=== PATIENT | female | born 1985 | race Hispanic/Latino ===

== ENCOUNTER 2017-05-19 21:48 | Emergency (ER) | payer OTHER ==
[~2017-05-19 21:48] MED LIST: Sodium Chloride 0.9% 1,000 ML BAG ONE
--- NOTE | 2017-05-19 22:43 | RAD ---
CHEST TWO VIEWS 05/19/17 HISTORY: Dyspnea. COMPARISON: None. FINDINGS: Normal cardiac silhouette. Lungs and pleural bases are clear. No pneumothorax or osseous abnormality. IMPRESSION: No acute cardiopulmonary process. POS: [facility]
[2017-05-19] MEDS ORDERED: Ondansetron HCl/PF 4 MG/2 ML Vial ONE (22:51)
[2017-05-19] MEDS ORDERED: Ketorolac Tromethamine 30 MG/ML VIAL ONE (22:51)
[2017-05-19 23:02] LABS: #Basophils 0.1 thou/uL (0.0-0.2); #Eosinphils 0.1 thou/uL (0.0-0.7); #Lymphocytes 3.1 thou/uL (1.20-3.40); #Monocytes 0.9 thou/uL (0.11-0.59); #Neutrophils 6.1 thou/uL (1.40-6.50); %Basophils 0.6 % (0.0-1.0); %Eosinophils 0.8 % (0.0-10.0); %Lymphocytes 30.5 % (21.0-51.0); %Monocytes 8.9 % (0.0-10.0); %Neutrophils 59.3 % (42.0-75.0); Hemoglobin 11.6 g/dL (12.0-16.0); Mean Corpuscular HGB CONC 33.3 g/dL (32.0-36.0); Mean Corpuscular Hemoglobin 29.5 pg (27.0-31.0); Mean Corpuscular Volume 88.6 fl (81.0-99.0); Mean Platelet Volume 8.1 fL (7.4-10.4); Platelet Count 301 thou/uL (130-400); RBC Distribution Width 12.5 % (11.5-14.5); Red Blood Cell (RBC) Count 3.93 mill/uL (4.20-5.40); White Blood Cell (WBC) Count 10.2 thou/uL (4.8-10.8)
[2017-05-19 23:16] LABS: ALT (SGPT) 15 U/L (8-55); AST (SGOT) 19 U/L (5-34); Albumin 4.3 g/dL (3.5-5.0); Alkaline Phosphatase 66 U/L (40-150); Anion Gap 13 mmol/L (10-20); BUN (Urea Nitrogen) 12 mg/dL (7.0-18.7); Bilirubin, Total 0.3 mg/dL (0.2-1.2); Calc. Creatinine Clearance 0 mL/min (70-130); Calcium 9.3 mg/dL (7.8-10.44); Carbon Dioxide 23 mmol/L (22-29); Chloride 107 mmol/L (98-107); Estimated GFR-MDRD Greater than 90; Globulin 3.5 g/dL (2.4-3.5); Glucose 96 mg/dL (70-105); Potassium 3.4 mmol/L (3.5-5.1); Protein, Total 7.8 g/dL (6.0-8.3); Sodium 140 mmol/L (136-145)
[2017-05-19] MEDS ORDERED: AMOXicillin 250 MG CAP ONE (23:51)
[2017-05-19] MEDS ORDERED: Benzonatate 100 MG CAP ONE (23:51)
== END 2017-05-20 00:16 | disposition home or self-care (01) ==
LOC: MADERS 21:48
DX: J20.9 Acute bronchitis, unspecified (principal); F41.9 Anxiety disorder, unspecified
CPT/HCPCS: 36415; 71046; 80053; 83880; 85025; 96361; 96374; 96375; J1885; J2405; J7050

== ENCOUNTER 2018-06-12 08:11 | Outpatient (CLI) | payer OTHER ==
--- NOTE | 2018-06-12 10:29 | ULT ---
PELVIC ULTRASOUND: HISTORY: Bilateral low pelvic pain x a month. Heavy spotting and bleeding. COMPARISON: 10/13/2015. TECHNIQUE: Transabdominal and endovaginal imaging of the pelvis is performed. Ovaries are interrogated with gra y scale, color flow, Doppler imaging and spectral waveform analysis. FINDINGS: Uterus is identified, without myometrial masses. Uterus measures 8.0 x 4.3 x 4.3 cm. Visualized end ometrium has a homogeneous echotexture, measuring 0.5 cm. Both ovaries have a normal echotexture. T he right ovary measures 2.9 x 1.7 x 2.0 cm. The left ovary measures 2.4 x 1.4 x 1.3 cm. No free fluid. OVARIAN DOPPPLER: Vascular flow to the left and right ovary. IMPRESSION: Unremarkable pelvic ultrasound. POS: [facility]
== END 2018-06-12 08:12 | disposition home or self-care (01) ==
LOC: MADULT 08:11
PROVIDERS: ATTEND Family Medicine
DX: R10.2 Pelvic and perineal pain (principal)
CPT/HCPCS: 76856

== ENCOUNTER 2018-08-15 14:27 | Outpatient (CLI) | payer OTHER ==
--- NOTE | 2018-08-15 15:33 | RAD ---
LEFT HAND 3 VIEWS: HISTORY: Left hand pain, fall. FINDINGS: No acute fracture or dislocation is seen. If there is tenderness in the anatomic snuffbox and symptoms do not improve, a followup wrist radiogr aphs should be obtained in 7-10 days. POS: OFF
--- NOTE | 2018-08-15 15:34 | RAD ---
LEFT WRIST 3 VIEWS: History Fall, left wrist pain. FINDINGS: No acute fracture or dislocation is seen. If symptoms do not improve, a followup exam should be obtained in 7-10 days. POS: OFF
== END 2018-08-15 14:28 | disposition home or self-care (01) ==
LOC: MADRAD 14:27
PROVIDERS: ATTEND Family Medicine
DX: M25.532 Pain in left wrist (principal); M79.642 Pain in left hand; W19.XXXA Unspecified fall, initial encounter